=== PATIENT | female | born 1980 | race Caucasian/White ===

== ENCOUNTER 2016-12-11 10:11 | Emergency (ER) | payer BC ==
[~2016-12-11] VITALS: Ht 152.4 cm; Wt 54.4 kg
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
[2016-12-11] MEDS ORDERED: ACETAMINOPHEN ES 500 MG TABLET ONE (10:15)
--- NOTE | 2016-12-11 10:23 | NUR ---
URINE SAMPLE COLLECTED SENT TO LAB
[2016-12-11] MEDS ORDERED: ACETAMINOPHEN ES 500 MG TABLET PO ONE (10:30)
[2016-12-11] MEDS ORDERED: TDAP [DIPH/PERTUSSIS/TET] 0.5 ML VIAL IM ONE ×2 (11:55→12:00)
--- NOTE | 2016-12-11 12:01 | NUR ---
PT REFUSED TDAP. HAD TDAP IN MAY 2016 DR POTTS MADE AWARE
--- NOTE | 2016-12-11 12:02 | NUR ---
Patient discharged to home in stable condition. Written and verbal after care instructions given. Patient verbalizes understanding of instruction.
[2016-12-11 12:06] VITALS: BP 130/65
== END 2016-12-11 12:07 | disposition home or self-care (01) ==
LOC: ER 10:12
DX: S00.93XA Contusion of unspecified part of head, initial encounter (principal); R51 Headache; V43.52XA Car driver injured in collision with other type car in traffic accident, initial encounter; Y93.89 Activity, other specified; Y92.89 Other specified places as the place of occurrence of the external cause; Y99.9 Unspecified external cause status
CPT/HCPCS: 70450; 70486; 72100; 84703; 90715; 99284; A4606; A6403; Z7610